=== PATIENT | female | born 1960 | race Caucasian/White ===

== ENCOUNTER 2019-02-07 03:02 | Emergency (ER) | payer BC ==
[~2019-02-07] VITALS: Ht 167.6 cm; Wt 115.0 kg
[2019-02-07] MEDS ORDERED: LIDOCAINE-MPF 1%, 5ML ONE (03:11)
--- NOTE | 2019-02-07 03:15 | NUR ---
RN to bedside, received report from EMS. RN to bedside, patient changed into gown and lab technician already there. Will triage on return to room.
[2019-02-07] MEDS ORDERED: LIDOCAINE 1%-EPI 1:100K, 20ML INFIL ONE (03:30)
[2019-02-07] MEDS ORDERED: PLEASE ENTER ALLERGIES MC SCH (03:30)
[2019-02-07] MEDS ORDERED: DIPH,PERTUSS(ACELL),TET VAC/PF 0.5 ML IM-VACC ONE ×2 (03:30→03:33)
[2019-02-07 04:11] VITALS: BP 134/86
== END 2019-02-07 04:21 | disposition home or self-care (01) ==
LOC: ED 04:20
DX: S01.01XA Laceration without foreign body of scalp, initial encounter (principal); E11.9 Type 2 diabetes mellitus without complications; W06.XXXA Fall from bed, initial encounter; Y93.89 Activity, other specified; Y92.59 Other trade areas as the place of occurrence of the external cause; Y99.8 Other external cause status
CPT/HCPCS: 12031; 70450; 90471; 90715; 93005